=== PATIENT | male | born 1955 | race Caucasian/White ===

== ENCOUNTER → 2020-06-03 | Outpatient (CLI) | payer OTHER | LOC: LAB 10:47 | PROVIDERS: ATTEND Pediatrics | DX: Z01.812 Encounter for preprocedural laboratory examination (principal); Z20.828 Contact with and (suspected) exposure to other viral communicable diseases ==

== ENCOUNTER → 2020-06-07 | Outpatient (CLI) | payer OTHER ==
--- NOTE | 2020-06-11 17:29 | SLE ---
[facility] [place] [address] POLYSOMNOGRAPHY STUDY Name: GERMÁN PAZ Room #: REG [facility]#: [id number] Admission: 06/07/20 Attend Phys: Maximiliano Flores MD Discharge: Date of : 51 Report #: [id number] THIS REPORT FOR: cc: NO FAMILY PHYSICIAN or PCP NO FAMILY PHYSICIAN or PCP Alireza Becerra MD ~ DATE OF SERVICE: 06/07/2020 SLEEP STUDY ATTENDING PHYSICIAN: Dr. Maximiliano Flores The patient is a 65-year-old who weighs 250 pounds with a BMI of 33.9. The patient has severe subjective hypersomnia with an Surprise score of 20. The patient has history of sleep apnea, for which the patient has used CPAP in the past. Another study done in April at [facility] did not show any significant sleep disorder breathing. The patient's AHI was 3.6 per hour. However, there were significant respiratory effort related arousals. The patient was referred for a diagnostic study followed by [facility]. During the night study, the patient spent 513 minutes in bed and slept for 415 minutes with a sleep efficiency of 81%. Sleep latency was 2.4 minutes with a REM latency of 62 minutes. Sleep architecture showed increased stage 1 and stage 2 sleep, absent slow wave and significantly reduced REM sleep, which was only 1% of the total sleep time. During the initial diagnostic portion of the study, the patient had 2 obstructive apneas, 1 central apnea, no mixed apneas and 259 hypopneas. The patient's AHI was 37.9 per hour with a REM AHI of 30 per hour and a supine AHI of 30 per hour. EKG monitoring revealed an average heart rate of 72 beats per minute. No sustained arrhythmias observed. PLMS were seen at an index of 133 per hour and 4 per hour caused EEG arousals. Nocturnal oximetry study revealed an average oxygen saturation of 94% with the lowest of 80%. Eight minutes were spent with oxygen saturation of less than 89%. The patient met the criteria for CPAP initiation. It was started at 5 cm water and titrated up to 12 cm water. At the final pressure, the patient slept for 53 minutes. The patient did not have REM sleep. The patient did have supine sleep throughout. The patient's AHI was reduced to 6.8 per hour and oxygen saturation remained above 90%. I would recommend 13 cm water as a final pressure. [address] [address] POLYSOMNOGRAPHY STUDY Name: GERMÁN PAZ Room #: REG CLI [facility]#: [id number] Admission: 06/07/20 Attend Phys: Maximiliano Flores MD Discharge: Date of : 51 Report #: [id number] IMPRESSION: 1. Severe obstructive sleep apnea at an AHI of 37.9 per hour. 2. Mild nocturnal hypoxia secondary to obstructive sleep apnea, but resolved with CPAP. 3. Severe periodic limb movements. RECOMMENDATIONS: 1. CPAP at 13 cm water should be used on a nightly basis. 2. Follow up in 4-6 weeks to assess compliance with CPAP and to document clinical improvement. 3. Weight loss is strongly advised. 4. Avoid SANDW[place] HAND depressants. 5. Cautioned regarding driving until symptoms of sleep apnea resolve with the use of CPAP. 6. The patient should also be followed up for symptoms of restless legs during the day and if present, it can be treated with dopaminergic agonist agents. <ELECTRONICALLY SIGNED> By: Alireza Becerra MD 06/11/20 1729 [id number] Alireza Becerra MD /nt
== END ==
LOC: SLEEPLAB 18:42
PROVIDERS: ATTEND Pediatrics
DX: G47.33 Obstructive sleep apnea (adult) (pediatric) (principal); G47.19 Other hypersomnia

== ENCOUNTER → 2020-10-20 | Outpatient (CLI) | payer OTHER | LOC: LAB 10-19 14:06 | PROVIDERS: ATTEND Anesthesiology | DX: Z01.812 Encounter for preprocedural laboratory examination (principal); Z20.822 Contact with and (suspected) exposure to COVID-19 ==